=== PATIENT | female | born 1970 | race Caucasian/White ===

== ENCOUNTER 2018-01-31 15:52 | Emergency (ER) | payer OTHER, SELFPAY ==
--- NOTE | 2018-01-31 16:23 | PC.NURSE ---
pt has been on phone outside the er glass door. has asked to wait for her.
[2018-01-31 16:32] VITALS: BP 141/85; PULSE 69; RESP 18; TEMP 36.9; O2SAT 100
--- NOTE | 2018-01-31 18:59 | DI.CT.S_ITS ---
PROCEDURE: CT KIDNEY URETER BLADDER (KUB) INDICATIONS: Suprapubic pain TECHNIQUE: Noncontrast 5 mm thick sections acquired from the diaphragms to the symphysis. 5 mm thick coronal and sagittal reformats were then performed. For radiation dose reduction, the following was used: automated exposure control, adjustment of mA and/or kV according to patient size. COMPARISON: None. FINDINGS: Image quality: Excellent. Lung bases: Lung bases are clear. Heart size is normal. Urinary system: Both kidneys are normal in size. No kidney stones. No hydronephrosis or perinephric fat stranding. Both ureters appear non-dilated throughout their expected courses. Bladder wall thickness is normal; no calcified bladder stones. Other solid organs: Liver is normal in size. Gallbladder is surgically absent. Pancreas is normal in contours. Spleen is normal in size. No adrenal nodules. Peritoneum and bowel: Unenhanced bowel loops demonstrate normal wall thickness and caliber. No free fluid or air. Nodes and vessels: No retroperitoneal or mesenteric adenopathy by size criteria. Aorta and inferior vena cava are normal in caliber. Abdominal wall: No ventral hernias is noted on the current study. Postsurgical changes are noted in midline of anterior abdominal wall, which may represent prior ventral hernia repair. Pelvis: No free pelvic fluid. No inguinal hernias or adenopathy. Uterus and bilateral adnexa show no gross abnormality. Bones: No suspicious bony lesions. No vertebral body compression fractures. Degenerative disc disease is noted L5-S1 level. IMPRESSION: No acute inflammatory process within the abdomen or pelvis. No renal stone or hydronephrosis. No finding to explain patient's symptoms. Dictated by: Patrick Evans M.D. on 01/31/2018 at 19:23 Approved by: Patrick Evans M.D. on 01/31/2018 at 19:28
[2018-01-31 19:18] LABS: Alanine Aminotransferase 29 IU/L (9-52); Albumin 4.4 g/dL (3.5-5.0); Albumin Globulin Ratio 1.5 (1.0-2.8); Alkaline Phosphatase 43 U/L (38-126); Aspartate Aminotransferase 28 IU/L (14-36); BUN Creatinine Ratio 23.8 (6-22); Bilirubin Total 0.5 mg/dL (0.2-1.3); Blood Urea Nitrogen 19 mg/dL (7-17); Calcium 9.5 mg/dL (8.4-10.2); Carbon Dioxide 31 mmol/L (22-32); Chloride 103 mmol/L (98-107); Estimated Glomerular Filt Rate > 60.0 mL/min (>60); Globulin 2.9 g/dL (1.7-4.1); Glucose 85 mg/dL (70-100); HEMOLYSIS 20 (0-50); Lactate (Lactic Acid) 0.7 mmol/L (0.7-2.1); Lipase 153 U/L (23-300); Potassium 3.9 mmol/L (3.4-5.1); Sodium 142 mmol/L (137-145); Total Protein 7.3 g/dL (6.3-8.2)
--- NOTE | 2018-01-31 19:29 | DI.US.S_ITS ---
PROCEDURE: US PELVIC COMPLETE INDICATIONS: BILATERAL PELVIC PAIN TECHNIQUE: Real-time scanning was performed of the pelvic organs, with image documentation. Additional endovaginal scanning was necessary due to incomplete visualization of the adnexal and endometrial structures by transabdominal scanning. COMPARISON: [facility], , PELVIC COMPLETE, 03/18/2010, 11:46. FINDINGS: Transabdominal scanning: Limited scanning through the kidneys shows no hydronephrosis. No pathologic free abdominal or pelvic fluid. Endovaginal scanning: Uterus: Uterus is normal in size at 8.3 x 4.3 x 5.7 cm. The endometrium measures 4.7 mm in combined thickness. 3 mm simple endometrial cyst. Ovaries: Ovaries normal bilaterally measuring 2.1 x 1.2 x 2.4 cm on the right and 1.9 x 0.9 x 1.6 cm on the left. No adnexal masses. No free intraperitoneal fluid. IMPRESSION: 3 mm simple endometrial cysts otherwise no source for pelvic pain identified sonographically. Dictated by: Lars Gaines [facility] Interpreted: Patrick Evans MD on 02/01/2018 at 7:45 Approved by: Patrick Evans M.D. on 02/01/2018 at 10:41
[2018-01-31 20:42] LABS: Add Manual Diff / Slide Review NO; Basophils Percent Auto 0.7 % (0-2); Eosinophils Percent Auto 2.2 % (2-4); Hematocrit 39.6 % (36-46); Hemoglobin 13.2 g/dL (12.0-16.0); Lymphocytes Percent Auto 41.9 % (25-40); Mean Corpuscular HGB Conc 33.3 % (30-36); Mean Corpuscular Hemoglobin 31.3 PG (26-34); Monocytes Percent Auto 6.8 % (3-14); Neutrophils Absolute Auto 2100 /uL (3000-5900); Neutrophils Percent Auto 48.4 % (50-75); Platelet Count 173 X10^3/uL (150-400); Red Blood Cell Count 4.21 X10^6/uL (4.0-5.2); Red Cell Distribution Width 13.3 % (11.6-14.8); White Blood Cell Count 4.4 X10^3/uL (4.5-11.0)
--- NOTE | 2018-01-31 20:44 | ED_ITS ---
HPI - Abdominal Pain <FABIEN Rao - Last Filed: 01/31/18 20:53> General Chief Complaint: Abdominal Pain Stated Complaint: PAIN, NAUSEA, LOW GRADE FEVER Time Seen by Provider: 01/31/18 17:48 Source: patient Mode of arrival: ambulatory Limitations: no limitations History of Present Illness HPI narrative: 47-year-old female sent here from [facility] on [address] for further evaluation and CT urogram. Patient was informed that we do not have CT urogram available here. She reports that she has had several urinary tract infection over the past several weeks with multiple rounds of antibiotics. She reports that she is still having symptoms of suprapubic pain. She also reports that she has had some whitish discharge. She denies any fevers or chills. She denies any stressors or relievers arm pain. No other concerns or complaints at this time. No flank pain. Related Data Home Medications Medication Instructions Recorded Confirmed divalproex [Depakote] 125 mg PO Q DAY #0 05/26/16 acetaminophen 650 mg PO PRN PRN #0 03/08/17 dextroamphetamine-amphetamine 1 tab PO DAILY 01/31/18 01/31/18 lithium carbonate 600 mg PO BEDTIME 01/31/18 01/31/18 nitrofurantoin monohyd/m-cryst 100 mg PO DAILY 01/31/18 01/31/18 [Macrobid] quetiapine 300 mg PO BEDTIME 01/31/18 01/31/18 Previous Rx's Medication Instructions Recorded ibuprofen 800 mg PO TIDP PRN #30 tab 08/05/16 phenazopyridine [Pyridium] 200 mg PO TID #15 tab 03/08/17 Allergies Allergy/AdvReac Type Severity Reaction Status Date / Time levofloxacin Allergy Unknown Unverified 09/28/17 12:13 morphine Allergy Unknown Unverified 09/28/17 12:13 Review of Systems <FABIEN Rao - Last Filed: 01/31/18 20:53> Constitutional Denies chills, Denies fever(s), Denies lethargy and Denies weakness Eyes Denies change in vision, Denies eye discharge, Denies irritation and Denies loss of vision ENT Ears, Nose, Mouth, and Throat: Denies change in voice, Denies neck pain and Denies sore throat Cardiovascular Denies chest pain, Denies irregular heart rhythm, Denies lightheadedness, Denies palpitations, Denies dyspnea, Denies dyspnea on exertion and Denies orthopnea Respiratory Denies cough, Denies dyspnea, Denies dyspnea on exertion and Denies wheezing Gastrointestinal Comments: Suprapubic pain Genitourinary Denies hematuria, Denies flank pain, Denies urinary incontinence and Denies urinary urgency Musculoskeletal Denies neck pain Integumentary/Breasts Denies pruritus, Denies erythema, Denies rash and Denies wounds Neurologic Denies confusion, Denies loss of vision and Denies weakness Psychiatric Denies anxiety, Denies confusion, Denies depression, Denies homicidal ideation and Denies suicidal ideation Endocrine Denies palpitations Hematologic/Lymphatic Denies easy bruising Allergic/Immunologic Denies wheezing Exam <FABIEN Rao - Last Filed: 01/31/18 20:53> Initial Vital Signs Initial Vital Signs: Vital Signs Temperature 98.5 F 01/31/18 16:32 Pulse Rate 69 01/31/18 16:32 Respiratory Rate 18 01/31/18 16:32 Blood Pressure 141/85 H 01/31/18 16:32 Pulse Oximetry 100 01/31/18 16:32 Const General: cooperative and well developed Nutritional Appearance: well nourished Orientation: alert, awake, oriented x3 and not confused [facility] Mouth: oral mucosae normal and moist mucous membranes Eyes Conjunctivae: conjunctivae normal Sclera: sclerae normal Pupils: PERRL EOM: EOM intact bilaterally Chest Chest: normal inspection of the chest Resp Effort & Inspection: normal respiratory effort, able to speak in complete sentences, no respiratory distress and no use of accessory muscles Auscultation: clear to auscultation bilaterally, no rales, no rhonchi and no wheezes Cardio Rate: regular rate Rhythm: regular rhythm Heart Sounds: no click, no gallops, no murmurs and no rubs General: No CVA tenderness Speculum Exam - Vagina: normal appearance of the vagina and abnormal vaginal discharge white Speculum Exam - Cervix: normal appearance of the cervix, closed cervix and nontender Bimanual Exam- Vagina & Uterus: normal bimanual exam, normal vaginal palpation and No cervical tenderness Skin General: no rashes or lesions noted, No jaundice and No petechiae Neuro General: alert, oriented x3, gait normal and no focal motor deficits Speech: speech normal <Zita Nuñez DO - Last Filed: 02/01/18 04:23> Initial Vital Signs Initial Vital Signs: Vital Signs Temperature 98.5 F 01/31/18 16:32 Pulse Rate 69 01/31/18 16:32 Respiratory Rate 18 01/31/18 16:32 Blood Pressure 141/85 H 01/31/18 16:32 Pulse Oximetry 100 01/31/18 16:32 Course <FABIEN Rao - Last Filed: 01/31/18 20:53> Orders Ordered: ED Orders 01/31/18 19:29 US pelvic complete Stat 01/31/18 20:29 Blood Culture Stat 01/31/18 20:38 Complete Blood Count AUTO DIFF Stat Vital Signs - 8 hr 01/31/18 20:57 Pulse Rate 68 Respiratory Rate 12 Blood Pressure 126/69 H Pulse Oximetry 99 <Zita Nuñez DO - Last Filed: 02/01/18 04:23> Orders Ordered: ED Orders 01/31/18 19:29 US pelvic complete Stat 01/31/18 20:29 Blood Culture Stat 01/31/18 20:38 Complete Blood Count AUTO DIFF Stat Vital Signs - 8 hr 01/31/18 20:57 Pulse Rate 68 Respiratory Rate 12 Blood Pressure 126/69 H Pulse Oximetry 99 MDM - Abdominal Pain <FABIEN Rao - Last Filed: 01/31/18 20:53> Lab Data Result diagrams: 01/31/18 20:38 01/31/18 18:55 Lab Results 01/31/18 01/31/18 01/31/18 Range/Units 18:55 18:55 20:38 WBC 4.4 L (4.5-11.0) X10^3/uL RBC 4.21 (4.0-5.2) X10^6/uL Hgb 13.2 (12.0-16.0) g/dL Hct 39.6 (36-46) % MCV 94.0 (80-100) fL MCH 31.3 (26-34) PG MCHC 33.3 (30-36) % RDW 13.3 (11.6-14.8) % Plt Count 173 (150-400) X10^3/uL Neut % (Auto) 48.4 L (50-75) % Lymph % (Auto) 41.9 H (25-40) % [place] % (Auto) 6.8 (3-14) % Eos % (Auto) 2.2 (2-4) % Baso % (Auto) 0.7 (0-2) % Neut # (Auto) 2100 L (5484-0625) /uL Sodium 142 (137-145) mmol/L Potassium 3.9 (3.4-5.1) mmol/L Chloride 103 (98-107) mmol/L Carbon Dioxide 31 (22-32) mmol/L BUN 19 H (7-17) mg/dL Creatinine 0.80 (0.52-1.04) mg/dL Estimated GFR > 60.0 (>60) mL/min BUN/Creatinine Ratio 23.8 H (6-22) Glucose 85 (70-100) mg/dL Lactate 0.7 (0.7-2.1) mmol/L Calcium 9.5 (8.4-10.2) mg/dL Total Bilirubin 0.5 (0.2-1.3) mg/dL AST 28 (14-36) IU/L ALT 29 (9-52) IU/L Alkaline Phosphatase 43 (38-126) U/L Total Protein 7.3 (6.3-8.2) g/dL Albumin 4.4 (3.5-5.0) g/dL Globulin 2.9 (1.7-4.1) g/dL Albumin/Globulin Ratio 1.5 (1.0-2.8) Lipase 153 (23-300) U/L Point of care testing: Urine Dip Bedside Urine Glucose Negative Bedside Urine Bilirubin - Negative Bedside Urine Ketone - Negative Urine Specific [place] 1.020 Bedside Urine Occult Blood - Negative Bedside Urine pH 6.0 Bedside Urine Protein - Negative Bedside Urine Urobilinogen - Negative Bedside Urine Nitrite - Negative Bedside Urine Leukocytes - Negative Esterase Imaging Data CT scan - abdomen: Radiologist's impression: PROCEDURE: CT KIDNEY URETER BLADDER (KUB) INDICATIONS: Suprapubic pain TECHNIQUE: Noncontrast 5 mm thick sections acquired from the diaphragms to the symphysis. 5 mm thick coronal and sagittal reformats were then performed. For radiation dose reduction, the following was used: automated exposure control, adjustment of mA and/or kV according to patient size. COMPARISON: None. FINDINGS: Image quality: Excellent. Lung bases: Lung bases are clear. Heart size is normal. Urinary system: Both kidneys are normal in size. No kidney stones. No hydronephrosis or perinephric fat stranding. Both ureters appear non-dilated throughout their expected courses. Bladder wall thickness is normal; no calcified bladder stones. Other solid organs: Liver is normal in size. Gallbladder is surgically absent. Pancreas is normal in contours. Spleen is normal in size. No adrenal nodules. Peritoneum and bowel: Unenhanced bowel loops demonstrate normal wall thickness and caliber. No free fluid or air. Nodes and vessels: No retroperitoneal or mesenteric adenopathy by size criteria. Aorta and inferior vena cava are normal in caliber. Abdominal wall: No ventral hernias is noted on the current study. Postsurgical changes are noted in midline of anterior abdominal wall, which may represent prior ventral hernia repair. Pelvis: No free pelvic fluid. No inguinal hernias or adenopathy. Uterus and bilateral adnexa show no gross abnormality. Bones: No suspicious bony lesions. No vertebral body compression fractures. Degenerative disc disease is noted L5-S1 level. IMPRESSION: No acute inflammatory process within the abdomen or pelvis. No renal stone or hydronephrosis. No finding to explain patient's symptoms. Dictated by: Patrick Evans M.D. on 01/31/2018 at 19:23 Approved by: Patrick Evans M.D. on 01/31/2018 at 19:28 MDM Narrative Medical decision making narrative: CBC and Chem panel were obtained were unremarkable. Lactic was negative. Urinalysis negative for urinary tract infection. KUB of the abdomen was obtained was negative for any acute findings. Pelvic ultrasound was obtained and shows small cyst to the uterine area otherwise is unremarkable. Wet prep was obtained was negative. GC chlamydia is pending. Blood cultures are pending. Vaginal culture is also pending. Will have patient follow up with primary care provider for further evaluation and results of the chlamydia. Recommend referral to urology for further evaluation and due to frequent urinary tract infections. For any worsening symptoms return to the emergency room. <Zita Nuñez DO - Last Filed: 02/01/18 04:23> Lab Data Lab Results 01/31/18 01/31/18 01/31/18 Range/Units 18:55 18:55 20:38 WBC 4.4 L (4.5-11.0) X10^3/uL RBC 4.21 (4.0-5.2) X10^6/uL Hgb 13.2 (12.0-16.0) g/dL Hct 39.6 (36-46) % MCV 94.0 (80-100) fL MCH 31.3 (26-34) PG MCHC 33.3 (30-36) % RDW 13.3 (11.6-14.8) % Plt Count 173 (150-400) X10^3/uL Neut % (Auto) 48.4 L (50-75) % Lymph % (Auto) 41.9 H (25-40) % [place] % (Auto) 6.8 (3-14) % Eos % (Auto) 2.2 (2-4) % Baso % (Auto) 0.7 (0-2) % Neut # (Auto) 2100 L (4681-1369) /uL Sodium 142 (137-145) mmol/L Potassium 3.9 (3.4-5.1) mmol/L Chloride 103 (98-107) mmol/L Carbon Dioxide 31 (22-32) mmol/L BUN 19 H (7-17) mg/dL Creatinine 0.80 (0.52-1.04) mg/dL Estimated GFR > 60.0 (>60) mL/min BUN/Creatinine Ratio 23.8 H (6-22) Glucose 85 (70-100) mg/dL Lactate 0.7 (0.7-2.1) mmol/L Calcium 9.5 (8.4-10.2) mg/dL Total Bilirubin 0.5 (0.2-1.3) mg/dL AST 28 (14-36) IU/L ALT 29 (9-52) IU/L Alkaline Phosphatase 43 (38-126) U/L Total Protein 7.3 (6.3-8.2) g/dL Albumin 4.4 (3.5-5.0) g/dL Globulin 2.9 (1.7-4.1) g/dL Albumin/Globulin Ratio 1.5 (1.0-2.8) Lipase 153 (23-300) U/L Point of care testing: Urine Dip Bedside Urine Glucose Negative Bedside Urine Bilirubin - Negative Bedside Urine Ketone - Negative Urine Specific [place] 1.020 Bedside Urine Occult Blood - Negative Bedside Urine pH 6.0 Bedside Urine Protein - Negative Bedside Urine Urobilinogen - Negative Bedside Urine Nitrite - Negative Bedside Urine Leukocytes - Negative Esterase Discharge Plan Departure Patient Disposition: Home, Self-Care Clinical Impression: Bladder pain Discharge Date/Time: 01/31/18 20:57 Interventions: ED Discharge Assessment Last Done: 01/31/18 20:57 Instructions: Urinary Tract Infection Activity Restrictions/Additional Instructions: Ultrasound shows a small cyst to the uterine area however or as otherwise unremarkable. Urinalysis was negative for urinary tract infection. CT of the abdomen was obtained was negative. Laboratory results were unremarkable. There is currently pending cultures for Chlamydia and gonorrhea and standard culture. Blood cultures are also pending. CT head that was desired by your primary care provider is not available at this location. Recommend following with her primary care provider the next few days for results of the labs that are pending and also discussion for referral to Urology. For any worsening symptoms return to the emergency room. Prescriptions: No Action divalproex [Depakote] 125 MG tablet,delayed release (DR/EC) 125 mg PO Q DAY Qty: 0 RF: 0 ibuprofen 800 MG tablet 800 mg PO TIDP PRNQty: 30 RF: 0 acetaminophen 325 MG tablet 650 mg PO PRN PRNQty: 0 RF: 0 phenazopyridine [Pyridium] 200 MG tablet 200 mg PO TID Qty: 15 RF: 0 quetiapine 300 mg tablet 300 mg PO BEDTIME RF: 0 lithium carbonate 300 mg tablet extended release 600 mg PO BEDTIME RF: 0 dextroamphetamine-amphetamine 20 mg tablet 1 tab PO DAILY RF: 0 nitrofurantoin monohyd/m-cryst [Macrobid] 100 MG capsule 100 mg PO DAILY RF: 0 Referrals: Mohinder Frey MD [Primary Care Provider] - <Zita Nuñez DO - Last Filed: 02/01/18 04:23> Cosign ED Attending Sahnellature Attestation: I was immediately available in the department for consultation. Documentation has been reviewed. I agree with assessment and plan.
[2018-01-31 20:57] VITALS: BP 126/69; PULSE 68; RESP 12; O2SAT 99
--- NOTE | 2018-02-08 17:00 | PC.NURSE ---
Pt called to review lab results. / Id verified. Review culture results (Gardenerella Vaginalis) w/ Dr. Antoine who ordered Flagyl 500 mg po bid x 7 days. Called into [facility] on [address]. Pt happy w/ this result. Encouraged to f/u as needed and indicated and return for any difficulty or concerns. Cautioned to not drink any alcohol while on Flagyl and to discuss w/ pharmacist.
== END 2018-01-31 20:57 | disposition home or self-care (01) ==
PROVIDERS: Emergency Medicine; Emergency Provider Nurse Practitioner Family; PCP Family Medicine
DX: R39.89 Other symptoms and signs involving the genitourinary system (principal)
CPT/HCPCS: 36591; 74176; 76830; 76856; 80053; 81003; 83605; 83690; 85025; 87040; 87070; 87077; 87086; 87205; 87210; 99282; 99284

== ENCOUNTER → 2021-04-24 08:25 | Outpatient (CLI) | payer OTHER, SELFPAY ==
[2021-04-24 19:26] LABS: Basophils Absolute Auto 0 /uL (0-100); Eosinophils Absolute Auto 100 /uL (0-450); Eosinophils Percent Auto 2.4 % (2-4); Hematocrit 37.6 % (36-46); Hemoglobin 12.6 g/dL (12.0-16.0); Lymphocytes Absolute Auto 2100 /uL (1100-4500); Lymphocytes Percent Auto 46.4 % (25-40); Mean Corpuscular HGB Conc 33.4 % (30-36); Mean Corpuscular Hemoglobin 31.6 PG (26-34); Mean Corpuscular Volume 94.6 fL (80-100); Monocytes Absolute Auto 600 /uL (0-900); Monocytes Percent Auto 12.8 % (3-14); Neutrophils Absolute Auto 1700 /uL (1500-7000); Neutrophils Percent Auto 38.4 % (50-75); Platelet Count 151 X10^3/uL (150-400); Red Blood Cell Count 3.98 X10^6/uL (4.0-5.2); Red Cell Distribution Width 12.8 % (11.6-14.8); White Blood Cell Count 4.4 X10^3/uL (4.5-11.0)
[2021-04-24 19:39] LABS: Alanine Aminotransferase 40 IU/L (<35); Albumin 4.2 g/dL (3.5-5.0); Albumin Globulin Ratio 1.8 (1.0-2.8); Alkaline Phosphatase 53 U/L (38-126); Aspartate Aminotransferase 37 IU/L (14-36); BUN Creatinine Ratio 30.7 (6-22); Bilirubin Total 0.4 mg/dL (0.2-1.3); Blood Urea Nitrogen 23 mg/dL (7-17); C-Reactive Protein Quant < 0.5 mg/dL (<1.0); Calcium 9.5 mg/dL (8.4-10.2); Carbon Dioxide 32 mmol/L (22-32); Chloride 103 mmol/L (98-107); Estimated Glomerular Filt Rate > 60.0 mL/min (>60); Globulin 2.4 g/dL (1.7-4.1); Glucose 92 mg/dL (70-100); HEMOLYSIS < 15 (0-50); Potassium 4.6 mmol/L (3.4-5.1); Sodium 139 mmol/L (137-145); Total Protein 6.6 g/dL (6.3-8.2); Uric Acid 4.4 mg/dL (2.5-6.2)
[2021-04-24 20:08] LABS: Add Manual Diff / Slide Review SLIDE REVIEW
[2021-04-24 20:11] LABS: RBC Morphology Normal Morphology
[2021-04-24 20:12] LABS: Erythrocyte Sedimentation Rate 1 MM/HR (0-20)
== END ==
PROVIDERS: PCP Physician Assistant; Visit Provider Physician Assistant
DX: G89.29 Other chronic pain (principal); M21.611 Bunion of right foot; M79.674 Pain in right toe(s)
CPT/HCPCS: 80053; 84550; 85025; 85651; 86140

== ENCOUNTER → 2021-04-27 10:20 | Outpatient (CLI) | payer OTHER, SELFPAY ==
[2021-04-29 13:09] LABS: Interpretation Negative (Negative)
== END ==
PROVIDERS: PCP Physician Assistant; Visit Provider Physician Assistant
DX: R10.13 Epigastric pain (principal); Z87.11 Personal history of peptic ulcer disease
CPT/HCPCS: 83013

== ENCOUNTER → 2021-05-04 15:07 | Outpatient (CLI) | payer OTHER, SELFPAY ==
[2021-05-04 16:07] LABS: Add Manual Diff / Slide Review NO; Basophils Absolute Auto 0 /uL (0-100); Basophils Percent Auto 0.6 % (0-2); Eosinophils Absolute Auto 0 /uL (0-450); Eosinophils Percent Auto 0.7 % (2-4); Hematocrit 40.1 % (36-46); Hemoglobin 13.5 g/dL (12.0-16.0); Lymphocytes Absolute Auto 1700 /uL (1100-4500); Lymphocytes Percent Auto 45.4 % (25-40); Mean Corpuscular HGB Conc 33.6 % (30-36); Mean Corpuscular Hemoglobin 31.5 PG (26-34); Mean Corpuscular Volume 93.7 fL (80-100); Monocytes Absolute Auto 300 /uL (0-900); Monocytes Percent Auto 8.1 % (3-14); Neutrophils Absolute Auto 1600 /uL (1500-7000); Neutrophils Percent Auto 45.2 % (50-75); Platelet Count 180 X10^3/uL (150-400); Red Blood Cell Count 4.28 X10^6/uL (4.0-5.2); Red Cell Distribution Width 12.8 % (11.6-14.8); White Blood Cell Count 3.6 X10^3/uL (4.5-11.0)
[2021-05-06 16:25] LABS: Glucose-6-Phosphate Dehydrogen 256 (127-427)
[2021-05-07 14:01] LABS: ANA Screen, IFA Negative (.)
== END ==
PROVIDERS: PCP Physician Assistant; Referring Provider Physician Assistant Medical; Visit Provider Physician Assistant Medical
DX: R23.1 Pallor (principal)
CPT/HCPCS: 36415; 82955; 85025; 85041; 86038

== ENCOUNTER → 2021-05-18 12:15 | Outpatient (CLI) | payer OTHER, SELFPAY | PROVIDERS: PCP Physician Assistant; Visit Provider Physician Assistant | DX: Z12.4 Encounter for screening for malignant neoplasm of cervix (principal) | CPT/HCPCS: 87491; 87591; 87661; 88175 ==

== ENCOUNTER → 2021-06-03 08:09 | Outpatient (CLI) | payer OTHER, SELFPAY ==
--- NOTE | 2021-06-03 08:10 | DI.US.S_ITS ---
PROCEDURE: US ABDOMEN COMPLETE INDICATIONS: Abdominal mass per patient near location of mesh/hernia repa TECHNIQUE: Real-time scanning was performed of the abdominal and retroperitoneal organs, with image documentation. COMPARISON: [facility], , ABDOMEN COMPLETE, 03/18/2010, 11:38. FINDINGS: Liver: Liver is normal in size and homogeneous in echotexture. Gallbladder: Surgically absent. Biliary ducts: Intrahepatic bile ducts are non-dilated. Extrahepatic bile duct caliber measures 6.8 mm. Normal is 6-7 mm or less in diameter, or 10 mm or less post-cholecystectomy. Pancreas: Visualized portions of the pancreas are sonographically normal. Spleen: Spleen is normal in size and homogeneous in echotexture. Kidneys: Kidneys are normal in size and echotexture. Right kidney measures 10 cm long; left kidney measures 10.9 cm long. No hydronephrosis or nephrolithiasis. No solid masses. Aorta: Visualized aorta is normal in caliber at less than 3 cm. Iliacs: Proximal common iliac arteries are normal in caliber at less than 2.5 cm. IVC: Intrahepatic inferior vena cava is patent. Miscellaneous: No free abdominal fluid. Non reducible, fat containing periumbilical hernia visualized in the region of interest. IMPRESSION: 1. Non reducible, fat containing left periumbilical hernia. Dictated by: Lars Gaines [facility] Interpreted: Patrick Evans MD on 06/03/2021 at 9:13 Transcribed by: JOSE ANGEL on 06/03/2021 at 9:15 Approved by: Patrick Evans M.D. on 06/03/2021 at 10:22
== END ==
PROVIDERS: PCP Physician Assistant; Referring Provider Physician Assistant; Visit Provider Physician Assistant
DX: K42.0 Umbilical hernia with obstruction, without gangrene (principal); Z90.49 Acquired absence of other specified parts of digestive tract
CPT/HCPCS: 76700

== ENCOUNTER → 2021-06-10 12:47 | Outpatient (CLI) | payer OTHER, SELFPAY ==
--- NOTE | 2021-06-10 12:48 | DI.US.S_ITS ---
PROCEDURE: US PELVIC COMPLETE INDICATIONS: RIGHT ADNEXAL FULLNESS TECHNIQUE: Real-time scanning was performed of the pelvic organs, with image documentation. Additional endovaginal scanning was necessary due to incomplete visualization of the adnexal and endometrial structures by transabdominal scanning. COMPARISON: [facility], , US PELVIC COMPLETE, 01/31/2018, 20:00. FINDINGS: Uterus: Uterus is anteverted and normal in size at 6.6 x 3.7 x 5.2 cm. The myometrium is homogeneous. The endometrium measures 2.4 mm combined thickness. Ovaries: The right ovary measures 1.4 x 1 x 2.1 cm. The left ovary measures 1.3 x 0.7 x 2.1 cm. The ovaries have a normal sonographic appearance. No adnexal masses are seen. Other: No pathologic free abdominal or pelvic fluid. IMPRESSION: No significant abnormality. We strive to produce accurate, complete, and clear reports of imaging services. To assist us in improving patient care, this report was composed using standard report templates and voice recognition software. Therefore, it may contain abnormal punctuation, insertions and/or omissions. Occasional wrong-word or sound-alike substitutions may occur. Though we review the report and make efforts to correct it, we do recommend that the report be read carefully in proper context to recognize any text inaccuracies. Dictated by: Jesus Hogan M.D. on 06/10/2021 at 14:08 Approved by: Jesus Hogan M.D. on 06/10/2021 at 14:22
== END ==
PROVIDERS: PCP Physician Assistant; Referring Provider Obstetrics & Gynecology; Visit Provider Obstetrics & Gynecology
DX: N94.89 Other specified conditions associated with female genital organs and menstrual cycle
CPT/HCPCS: 76856

== ENCOUNTER → 2021-11-17 08:34 | Outpatient (CLI) | payer OTHER, MEDICAID, SELFPAY ==
[2021-11-17 20:10] LABS: COVID19 - ORCAS (NP or Nasal) Negative (Negative)
== END ==
PROVIDERS: PCP Physician Assistant; Visit Provider Physician Assistant
DX: Z20.822 Contact with and (suspected) exposure to COVID-19 (principal); Z01.812 Encounter for preprocedural laboratory examination
CPT/HCPCS: U0003

== ENCOUNTER 2021-11-18 11:09 | Day surgery (SDC) | payer OTHER, MEDICAID, SELFPAY ==
[2021-11-10 12:13] VITALS: BMI 21.4
[2021-11-18] VITALS (9 sets, daily range): BP systolic 96–118; BP diastolic 53–74; PULSE 61–80; RESP 10–20; TEMP 36.2–36.4; O2SAT 90–100; BMI 21.4
--- NOTE | 2021-11-18 | PATH_ITS ---
[facility] Accession Number: [id number] . 01 Material submitted: . hernia - HERNIA . 01 Diagnosis: Hernia, Excision: Fibroconnective and fibroadipose tissue with focal foreign body associated granulomatous inflammation, compatible with hernia sac contents. MRV 11/20/2021 1045 Local . 01 Electronically signed: . Lu Jane MD, Pathologist NPI- [id number] . 01 Gross description: . Received in a container of formalin labeled hernia is a 5.0 x 3.5 x 1.5 cm variegated rubbery portion of fibrofatty tissue. The specimen is serially sectioned. The cut surfaces consist of fibrofatty tissue surrounding synthetic mesh material with a few embedded alexsandra. No masses or normal entrapped structures are identified. Flight Attendant Ramp cross section is submitted in cassette A1. ([id number]) /[facility] 11/19/2021 1847 Local . 01 Pathologist provided ICD-10: K42.9 . 01 CPT . 592138 Specimen Comment: A courtesy copy of this report has been sent to [phone] Performed at: 01 [facility] [address] [place] [address], [place], [place] [id number] MD Kelechi Queen MD Phone: [phone]
[2021-11-18] MEDS: GABAPENTIN 300 MG CAPSULE PO (11:47)
[2021-11-18] MEDS: ACETAMINOPHEN 325 MG TABLET 975 MG PO (11:48)
[2021-11-18] MEDS: SCOPOLAMINE 1 PATCH TOP (11:50)
[2021-11-18] MEDS: LACTATED RINGERS 1,000 ML 100 ML IV (11:57)
--- NOTE | 2021-11-18 12:27 | PM.PREOP ---
Pre-operative Note Interval Note History & Physical reviewed/Exam performed by Physician: Yes Changes to H&P: No
[2021-11-18] MEDS: CEFAZOLIN 2 GM/20 ML SYRINGE IV (12:46)
--- NOTE | 2021-11-18 12:55 | SUR.OPER ---
Supine on padded OR bed, head on pillow, arms secured on padded arm boards at <90 degrees abduction, legs uncrossed, safety belt at thigh, tape over blanket over lower legs.
[2021-11-18] MEDS: BUPIVACAINE 0.25% (PF) VIAL 30 ML INJ (13:23)
--- NOTE | 2021-11-18 14:03 | PM.OP.1 ---
Operative Date/Time/Diagnoses Date of procedure: 11/18/21 Time of procedure: 14:03 Pre-op diagnosis: Recurrent umbilical hernia Post-op diagnosis: same Procedure & Clinicians Procedure: Open umbilical repair Removal of prior umbilical hernia mesh Same procedure as scheduled: Yes Indications: 51-year-old woman with a recurrent symptomatic umbilical hernia with a previous repair with mesh Surgeon: Ben Plaza Anesthesia Type: General Operative Notes Findings: Fascial defect with omentum protruding around the previous mesh repair Specimen(s): other (Hernia) Estimated Blood Loss (mL): 20 Procedure in detail: Patient was brought to the operating room placed supine on the table. Bilateral lower extremity compression devices were applied. General anesthesia was induced and they were intubated with an endotracheal tube. They received 2 g of Ancef prior to skin incision. They were prepped and draped in sterile fashion. A time-out was performed. A curvilinear incision was made inferior to the umbilicus. There was essentially no subcutaneous tissue. There was a previous onlay umbilical mesh very densly scarred into the surrouding tissue. There was omentum protruding around the perimeter of the previous mesh on both the right and left sides. The mesh was densely adherent to the fascia and because there was almost no subcutaneous tissue it had adhered to the dermis as well. Ultimately the mesh was removed however in order to entirely remove it from the overlying dermis an additional incision was made superior and to the right of the umbilicus. The fascial defect was approximately 4 cm the fascia had retracted laterally. A [address] hernia patch was inserted into the fascial defect in a sublay position with good coverage on all sides, the anti adhesive surface down. The fascia was secured to the mesh with interrupted Ethibond. The subcutaneous tissue was reapproximated with Vicryl. The umbilical skin was tacked down with Vicryl suture. The skin closed with 4 0 Monocryl followed by the application of Dermabond and Steri-Strips. Sponge instrument count at the end of the operation was correct. Patient tolerated procedure well was extubated and transferred to postoperative care unit in stable condition. Complications: none Post-operative Condition: stable Disposition: same day surgery
[2021-11-18] MEDS: OXYCODONE IR 5 MG TABLET PO ×2 (14:11→14:38)
[2021-11-18] MEDS: fentaNYL 100 MCG/2 ML INJ IV (14:40)
== END 2021-11-18 15:33 | disposition home or self-care (01) ==
PROVIDERS: PCP Physician Assistant; Referring Provider Surgery; Visit Provider Surgery
PROC: (CPT 49585; principal; 2021-11-18 12:45)
DX: K42.9 Umbilical hernia without obstruction or gangrene (principal); K21.9 Gastro-esophageal reflux disease without esophagitis; F31.9 Bipolar disorder, unspecified; G47.00 Insomnia, unspecified; R00.0 Tachycardia, unspecified
CPT/HCPCS: 49585; 82962; J0330; J0690; J1100; J1885; J2250; J2405; J2704; J3010

== ENCOUNTER → 2022-08-12 16:19 | Outpatient (CLI) | payer OTHER, MEDICAID, SELFPAY | PROVIDERS: PCP Physician Assistant; Visit Provider Family Medicine | DX: R10.2 Pelvic and perineal pain (principal) | CPT/HCPCS: 87491; 87591; 87661 ==

== ENCOUNTER → 2022-08-20 14:25 | Outpatient (CLI) | payer OTHER, MEDICAID, SELFPAY ==
--- NOTE | 2022-08-20 14:27 | DI.US.S_ITS ---
PROCEDURE: US ABDOMEN LIMITED INDICATIONS: Prior periumbilical hernia repair, suspected recurrent hernia. TECHNIQUE: Real-time focused scanning was performed of the abdomen, with image documentation. COMPARISON: [facility], , US ABDOMEN COMPLETE, 06/03/2021, 8:21. FINDINGS: A periumbilical hernia is present. The herniated structure measures up to 1.8 x 3.3 x 4.5 cm. A body wall defect through which this protrudes measures up to 2.4 x 1.9 cm. IMPRESSION: Recurrent body wall hernia, periumbilical position, through a body wall defect measuring 2.4 x 1.9 cm. Currently there is no sonographic evidence of incarceration or strangulation of the 4.5 x 1.8 x 3.3 cm herniation. Dictated by: Lance Whitfield M.D. on 08/20/2022 at 16:23 Approved by: Lance Whitfield M.D. on 08/20/2022 at 16:25
--- NOTE | 2022-08-20 14:43 | DI.US.S_ITS ---
PROCEDURE: US PELVIC COMPLETE INDICATIONS: diagnostic,IMPL, Left axillary tenderness, due for screening TECHNIQUE: Real-time scanning was performed of the pelvic organs, with image documentation. Additional endovaginal scanning was necessary due to incomplete visualization of the adnexal and endometrial structures by transabdominal scanning. COMPARISON: [facility], [place], US ABDOMEN LIMITED, 08/20/2022, 14:52. [facility], [place], US PELVIC COMPLETE, 06/10/2021, 12:56. [facility], [place], US PELVIC COMPLETE, 01/31/2018, 20:00. FINDINGS: Uterus: Uterus is anteverted and normal in size at 4.3 x 5.2 x 8.7 cm. The myometrium is overall homogeneous. The endometrium measures 5.0 mm combined thickness. A small amount of echogenicity is present within the endometrial lining, perhaps representing a small amount of internal air. Ovaries: The right ovary was not seen. The left ovary measures 0.9 x 1.5 x 2.5 cm, with a calculated ovarian volume of 1.8 cc. The ovaries have a normal sonographic appearance. Less than 12 follicles can be seen in each ovary. No adnexal masses are seen. Other: No pathologic free abdominal or pelvic fluid. IMPRESSION: No definite acute disease, nonvisualization the right ovary. Depending on the clinical status follow-up by dedicated pelvic CT or MRI may become necessary. We strive to produce accurate, complete, and clear reports of imaging services. To assist us in improving patient care, this report was composed using standard report templates and voice recognition software. Therefore, it may contain abnormal punctuation, insertions and/or omissions. Occasional wrong-word or sound-alike substitutions may occur. Though we review the report and make efforts to correct it, we do recommend that the report be read carefully in proper context to recognize any text inaccuracies. Dictated by: Lance Whitfield M.D. on 08/20/2022 at 15:59 Approved by: Lance Whitfield M.D. on 08/20/2022 at 16:05
== END ==
PROVIDERS: PCP Family Medicine; Referring Provider Family Medicine; Visit Provider Family Medicine
DX: K42.9 Umbilical hernia without obstruction or gangrene (principal); R10.2 Pelvic and perineal pain; R10.9 Unspecified abdominal pain
CPT/HCPCS: 76705; 76830; 76856

== ENCOUNTER → 2022-08-31 09:46 | Outpatient (CLI) | payer OTHER, MEDICAID, SELFPAY ==
--- NOTE | 2022-08-31 | DI.MG.S_ITS ---
BILATERAL DIGITAL DIAGNOSTIC MAMMOGRAM 3D/2D WITH AUGMENTATION: 08/31/2022 CLINICAL: Baseline. Bilateral Breast axillary pain. No prior exams were available for comparison. There are scattered areas of fibroglandular density in both breasts (category b / 25%-50% glandular tissue). Bilateral retropectoral silicone implants are present. No significant masses, calcifications, or other findings are seen in either breast. IMPRESSION: NEGATIVE There is no abnormality seen in either breast to correspond with the diffuse pain, however, clinical followup is recommended. There is no mammographic evidence of malignancy. A 1 year screening mammogram is recommended. Based on Tyrer-Cuzick model (a risk assessment model), the patient's lifetime risk is 21.3% and her 10 year risk is 7.4%. If a patient has an elevated risk, a more comprehensive evaluation should be considered and/or a referral to a genetic counselor. The [place] [employer], [employer], and NCCN Guidelines advise the consideration of Breast MRI as an adjunct to screening mammography in patients whose Lifetime risk to develop breast cancer is 20% or higher. This exam was interpreted at Station ID: [id number]. NOTE: For mammograms, a report in lay terms will be sent to the patient. Approximately 15% of breast malignancies will not be visualized mammographically. In the management of a palpable breast mass, a negative mammogram must not discourage biopsy of a clinically suspicious lesion. Electronically Signed By: Flavio rodriguez/magdalena:08/31/2022 10:27:31 letter sent: Clinical Evaluation ACR BI-RADS Category 1: Negative [id number]
== END ==
PROVIDERS: PCP Family Medicine; Referring Provider Family Medicine; Visit Provider Family Medicine
DX: N64.4 Mastodynia (principal); M79.622 Pain in left upper arm; Z98.82 Breast implant status
CPT/HCPCS: 77066; G0279

== ENCOUNTER → 2023-06-02 11:21 | Outpatient (CLI) | payer OTHER, MEDICAID, SELFPAY ==
[2023-06-02 12:27] LABS: Add Manual Diff / Slide Review NO; Basophils Absolute Auto 0 /uL (0-100); Basophils Percent Auto 0.7 % (0-2); Eosinophils Absolute Auto 100 /uL (0-450); Eosinophils Percent Auto 2.1 % (2-4); Hemoglobin 13.4 g/dL (12.0-16.0); Lymphocytes Absolute Auto 1600 /uL (1100-4500); Lymphocytes Percent Auto 37.5 % (25-40); Mean Corpuscular HGB Conc 33.4 % (30-36); Mean Corpuscular Hemoglobin 31.4 PG (26-34); Mean Corpuscular Volume 94.1 fL (80-100); Monocytes Absolute Auto 400 /uL (0-900); Monocytes Percent Auto 8.4 % (3-14); Neutrophils Absolute Auto 2200 /uL (1500-7000); Neutrophils Percent Auto 51.3 % (50-75); Platelet Count 196 X10^3/uL (150-400); Red Blood Cell Count 4.26 X10^6/uL (4.0-5.2); Red Cell Distribution Width 12.6 % (11.6-14.8); White Blood Cell Count 4.2 X10^3/uL (4.5-11.0)
[2023-06-02 15:37] LABS: Alanine Aminotransferase 51 IU/L (<35); Albumin 4.5 g/dL (3.5-5.0); Albumin Globulin Ratio 1.6 (1.0-2.8); Alkaline Phosphatase 45 U/L (38-126); Aspartate Aminotransferase 44 IU/L (14-36); BUN Creatinine Ratio 36.6 (6-22); Bilirubin Total 0.5 mg/dL (0.2-1.3); Blood Urea Nitrogen 26 mg/dL (7-17); Carbon Dioxide 30 mmol/L (22-32); Chloride 101 mmol/L (98-107); Estimated Glomerular Filt Rate > 60 mL/min (>60); Globulin 2.9 g/dL (1.7-4.1); Glucose 85 mg/dL (70-100); HEMOLYSIS < 15 (0-50); Potassium 4.7 mmol/L (3.4-5.1); Sodium 137 mmol/L (137-145); Total Protein 7.4 g/dL (6.3-8.2)
[2023-06-03 15:08] LABS: Hemoglobin A1C% w Est Avg Glu 5.3 % (4.0-6.0)
[2023-06-03 21:22] LABS: Folate > 20.0 ng/mL (2.76-20.0); Vitamin B12 875 pg/mL (239-931)
== END ==
PROVIDERS: PCP Family Medicine; Referring Provider Surgery; Visit Provider Surgery
DX: K43.9 Ventral hernia without obstruction or gangrene (principal); R42 Dizziness and giddiness; R63.4 Abnormal weight loss; R11.0 Nausea; L65.9 Nonscarring hair loss, unspecified
CPT/HCPCS: 36415; 80053; 82607; 82746; 83036; 84443; 85025; 99213

== ENCOUNTER → 2023-06-07 13:58 | Outpatient (CLI) | payer OTHER, MEDICAID, SELFPAY ==
--- NOTE | 2023-06-07 13:59 | DI.CT.S_ITS ---
PROCEDURE: CT ABDOMEN PELVIS W CON INDICATIONS: recurrent ventral hernia? TECHNIQUE: After the administration of intravenous contrast, axial sections acquired from the lung bases to the pubic symphysis. Coronal and sagittal reformats were performed. For radiation dose reduction, the following was used: automated exposure control, adjustment of mA and/or kV according to patient size. COMPARISON: [facility], CT, CT KIDNEY URETER BLADDER (KUB), 01/31/2018, 18:58. [facility], [place], US ABDOMEN LIMITED, 08/20/2022, 14:52. FINDINGS: Image quality: Good Lower chest: Suspected left basal scarring versus atelectasis. No pleural effusions. No dense airspace disease in the lung bases. Heart size is within normal limits. Possible coronary calcifications. Solid organs: Subcentimeter liver lesions are too small to characterize, possibly cysts. Comparison is difficult due to prior noncontrast technique. Cholecystectomy clips. Prominent biliary tree post cholecystectomy, probably due to postsurgical state. No splenomegaly. No adrenal nodules. No suspicious renal mass or hydronephrosis. Vessels and lymph nodes: The main portal vein is patent. No abdominal aortic aneurysm. No pathologic lymph nodes by size criteria. Bowel and peritoneum: No evidence of small bowel obstruction. No pathologic ascites. There is focal narrowing in sigmoid colon at the rectosigmoid junction. Mild focal narrowing is also seen in the proximal sigmoid colon. Possible segmental areas of wall thickening and hyperemia. Distal liquid colonic contents. Body wall: Recurrent abdominal wall hernia with a wide neck at the area postsurgical changes, with neck measuring about 7 x 5 centimeters. Pelvis: Bladder is unremarkable. Reproductive organs appear unremarkable on limited CT evaluation. Bones: Sclerotic lesions may represent small bone islands. There are degenerative changes. No acute or suspicious findings. IMPRESSION: Wide neck hernia at site of prior postsurgical changes. No bowel obstruction. Segmental narrowing and hyperemic appearance of the sigmoid colon and rectum. Contents are liquid. Findings likely represent colitis. Correlate with any symptoms. Correlation with age-appropriate colonoscopy results also suggested. Other findings as above. Dictated by: Abdi Coles M.D. on 06/07/2023 at 15:06 Approved by: Abdi Coles M.D. on 06/07/2023 at 15:13
== END ==
PROVIDERS: PCP Family Medicine; Referring Provider Surgery; Visit Provider Surgery
DX: K43.2 Incisional hernia without obstruction or gangrene (principal)
CPT/HCPCS: 74177

== ENCOUNTER → 2023-06-30 11:31 | Outpatient (CLI) | payer OTHER, MEDICAID, SELFPAY ==
[2023-06-30 19:27] LABS: Erythrocyte Sedimentation Rate 2 MM/HR (0-20)
[2023-06-30 19:44] LABS: Alanine Aminotransferase 57 IU/L (<35); Albumin 4.7 g/dL (3.5-5.0); Albumin Globulin Ratio 1.4 (1.0-2.8); Alkaline Phosphatase 55 U/L (38-126); Aspartate Aminotransferase 42 IU/L (14-36); Bilirubin Total 0.6 mg/dL (0.2-1.3); Bilirubin Unconjugated 0.3 mg/dL (0.0-1.1); C-Reactive Protein Quant < 0.5 mg/dL (<1.0); Cholesterol 278 mg/dL (140-199); Globulin 3.3 g/dL (1.7-4.1); HDL Cholesterol 107 mg/dL (40-60); HEMOLYSIS < 15 (0-50); LDL Cholesterol Calculated 141 mg/dL (<100); Triglycerides 149 mg/dL (35-150)
[2023-06-30 19:57] LABS: Rheumatoid Factor < 8.6 IU/mL (<12.0)
[2023-06-30 20:12] LABS: HEMOLYSIS < 15 (0-50); Iron 146 ug/dL (37-170)
[2023-06-30 20:17] LABS: Ferritin 79 ng/mL (11-264)
[2023-06-30 20:23] LABS: Hepatitis B Surface Antigen NEGATIVE s/c (NEGATIVE)
[2023-06-30 20:28] LABS: Hep C Virus Ab w/Reflex Quant NEGATIVE s/c (NEGATIVE)
[2023-06-30 20:29] LABS: Transferrin 279 mg/dL (206-381)
[2023-06-30 20:42] LABS: TSH w/ Reflex to FT4 2.48 uIU/mL (0.47-4.68)
[2023-06-30 20:48] LABS: Percent Iron Saturation 49 % (15-50); Total Iron Binding Capacity 298 ug/dL (265-497)
[2023-07-02 08:02] LABS: Hepatitis B Core Antibody Negative (Negative)
[2023-07-02 18:35] LABS: Free Kappa Lt Chains, Serum 16.5 mg/L (3.3-19.4); Free Lambda Lt Chains,Serum 15.4 mg/L (5.7-26.3)
[2023-07-02 21:47] LABS: CCP Antibodies IgG/IgA 8 units (0-19)
[2023-07-04 08:15] LABS: Hepatitis B Surf Ab Qualitativ Non Reactive (.)
[2023-07-05 12:28] LABS: Albumin 4.2 g/dL (2.9-4.4); Alpha-1-Globulin 0.3 g/dL (0.0-0.4); Alpha-2-Globulin 0.6 g/dL (0.4-1.0); Gamma Globulin 0.9 g/dL (0.4-1.8); Globulin Total 2.7 g/dL (2.2-3.9); Protein, Total 6.9 g/dL (6.0-8.5)
[2023-07-05 15:14] LABS: ANA Screen, IFA Negative (.)
== END ==
PROVIDERS: PCP Family Medicine; Visit Provider Family Medicine
DX: G62.9 Polyneuropathy, unspecified (principal); R23.1 Pallor; R21 Rash and other nonspecific skin eruption; R74.01 Elevation of levels of liver transaminase levels; R93.89 Abnormal findings on diagnostic imaging of other specified body structures; R11.0 Nausea; Z79.890 Hormone replacement therapy; R87.619 Unspecified abnormal cytological findings in specimens from cervix uteri
CPT/HCPCS: 80061; 80076; 82728; 83540; 83550; 83883; 84155; 84165; 84443; 85651; 86038; 86140; 86200; 86430; 86704; 86706; 86803; 87340

== ENCOUNTER → 2023-10-24 14:18 | Outpatient (CLI) | payer OTHER, MEDICAID, SELFPAY ==
--- NOTE | 2023-10-24 14:20 | DI.US.S_ITS ---
PROCEDURE: US PELVIC COMPLETE INDICATIONS: repeat due to endometrial thickness. stopped unopposed estro TECHNIQUE: Real-time scanning was performed of the pelvic organs, with image documentation. Additional endovaginal scanning was necessary due to incomplete visualization of the adnexal and endometrial structures by transabdominal scanning. COMPARISON: CT, CT ABDOMEN PELVIS W CON, 06/07/2023, 14:04. [facility], [place], US PELVIC COMPLETE, 08/20/2022, 15:10. FINDINGS: Uterus: Uterus is anteverted and normal in size at 6.7 x 5.0 x 3.0 cm. The myometrium is homogeneous. The endometrium measures 4.0 mm combined thickness. Trace endocervical fluid. Anterior lower uterine segment myometrial calcification measuring 9 mm. Calcification also involving left cornual myometrium measuring 4 mm. Ovaries: The right ovary measures 2.5 x 1.6 x 1.3 cm, with a calculated ovarian volume of 2.7 cc. The left ovary measures 2.0 x 1.4 x 1.1 cm, with a calculated ovarian volume of 1.6 cc. The ovaries have a normal sonographic appearance. Less than 12 follicles can be seen in each ovary. No adnexal masses are seen. Other: No pathologic free abdominal or pelvic fluid. IMPRESSION: 1. Endometrial complex within normal limits at 4 mm. 2. Myometrial calcifications, largest measuring 9 mm which may represent small fibroids. 3. Unremarkable appearance of the ovaries bilaterally. We strive to produce accurate, complete, and clear reports of imaging services. To assist us in improving patient care, this report was composed using standard report templates and voice recognition software. Therefore, it may contain abnormal punctuation, insertions and/or omissions. Occasional wrong-word or sound-alike substitutions may occur. Though we review the report and make efforts to correct it, we do recommend that the report be read carefully in proper context to recognize any text inaccuracies. Dictated by: Lars MEDINA Interpreted: Мария Victoria MD on 10/24/2023 at 16:07 Transcribed by: ROSAURA on 10/24/2023 at 16:10 Approved by: Мария Victoria M.D. on 10/24/2023 at 17:09
== END ==
PROVIDERS: PCP Family Medicine; Referring Provider Family Medicine; Visit Provider Family Medicine
DX: R93.89 Abnormal findings on diagnostic imaging of other specified body structures (principal); Z79.890 Hormone replacement therapy; N85.8 Other specified noninflammatory disorders of uterus
CPT/HCPCS: 76830; 76856

== ENCOUNTER → 2025-03-01 10:39 | Outpatient (CLI) | payer OTHER, SELFPAY ==
[2025-03-01 18:51] LABS: Alanine Aminotransferase 65 IU/L (<35); Albumin 4.3 g/dL (3.5-5.0); Albumin Globulin Ratio 1.7 (1.0-2.8); Alkaline Phosphatase 57 U/L (38-126); Blood Urea Nitrogen 28 mg/dL (7-17); Calcium 9.4 mg/dL (8.4-10.2); Carbon Dioxide 25 mmol/L (22-32); Chloride 104 mmol/L (98-107); Cholesterol 269 mg/dL (140-199); Estimated Glomerular Filt Rate > 60 mL/min (>60); Globulin 2.6 g/dL (1.7-4.1); Glucose 87 mg/dL (70-99); HEMOLYSIS < 15 (0-50); Potassium 4.5 mmol/L (3.4-5.1); Sodium 138 mmol/L (137-145); Total Protein 6.9 g/dL (6.3-8.2); Triglycerides 60 mg/dL (35-150)
[2025-03-01 19:04] LABS: HDL Cholesterol 145 mg/dL (40-60)
[2025-03-01 19:09] LABS: Add Manual Diff / Slide Review NO; Hematocrit 38.1 % (36-46); Hemoglobin 12.9 g/dL (12.0-16.0); Lymphocytes Absolute Auto 1700 /uL (1100-4500); Mean Corpuscular HGB Conc 33.9 % (30-36); Mean Corpuscular Hemoglobin 31.2 PG (26-34); Mean Corpuscular Volume 91.9 fL (80-100); Platelet Count 168 X10^3/uL (150-400)
[2025-03-01 19:20] LABS: TSH w/ Reflex to FT4 1.54 uIU/mL (0.47-4.68)
== END ==
PROVIDERS: PCP Family Medicine; Visit Provider Family Medicine
DX: E78.2 Mixed hyperlipidemia (principal); R00.0 Tachycardia, unspecified; Z79.899 Other long term (current) drug therapy
CPT/HCPCS: 80053; 80061; 84443; 85025